=== PATIENT | male | born 1990 | race Caucasian/White ===

== ENCOUNTER 2021-07-07 09:33 | Emergency (ER) | payer BC, SELFPAY ==
[2021-07-07 09:37] VITALS: BP 137/73; PULSE 66; RESP 14; TEMP 37.2; O2SAT 96
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
[2021-07-07] MEDS: Oxymetazolone 0.05% SPRAY 15 ML BTL NS (10:41)
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
[2021-07-07 11:01] VITALS: BP 132/83; PULSE 72; RESP 18; TEMP 36.6; O2SAT 97
[2021-07-07 11:04] VITALS: BP 132/83; PULSE 72; RESP 16; TEMP 36.6; O2SAT 97
== END 2021-07-07 11:37 | disposition home or self-care (01) ==
PROVIDERS: Emergency Provider Physician Assistant
DX: S02.2XXA Fracture of nasal bones, initial encounter for closed fracture (principal); R04.0 Epistaxis; V57.5XXA Driver of pick-up truck or van injured in collision with fixed or stationary object in traffic accident, initial encounter
CPT/HCPCS: 30901; 99284; 70486; 99283